=== PATIENT | female | born 2000 | race Caucasian/White ===

== ENCOUNTER 2020-05-22 08:46 | Outpatient (CLI) | payer OTHER ==
--- NOTE | 2020-05-22 09:07 | ULT ---
EXAM: US Breast Limited Lt PROVIDED CLINICAL HISTORY: Palpable abnormality COMPARISON: None FINDINGS: Limited sonographic interrogation was performed of the left breast in the region of palpable concern at 11, 12 and 1:00. The sonographic appearance of the breast tissue in this region is normal. IMPRESSION: No sonographic abnormality is evident in the region of clinical concern. Negative imaging findings sh ould not preclude further evaluation of a clinically suspicious finding. Patient is referred back to her clinician.
== END 2020-05-22 08:47 | disposition home or self-care (01) ==
LOC: BICULT 08:46
PROVIDERS: ATTEND Physician Assistant
DX: N63.20 Unspecified lump in the left breast, unspecified quadrant (principal)